=== PATIENT | male | born 1985 | race African-American/Black ===

== ENCOUNTER 2019-01-12 09:03 | Emergency (ER) | payer OTHER ==
[~2019-01-12] VITALS: Ht 182.9 cm; Wt 90.7 kg
[2019-01-12] MEDS ORDERED: METFORMIN HCL500 MG PO (09:12)
[2019-01-12 09:35] LABS: URINE BILIRUBIN NEGATIVE (Negative); URINE BLOOD 2+ (Negative); URINE CLARITY CLEAR; URINE COLOR YELLOW; URINE GLUCOSE-RANDOM 3+ (Negative); URINE KETONES 1+ (Negative); URINE LEUKOCYTES-REFLEX NEGATIVE (Negative); URINE NITRITE-REFLEX NEGATIVE (Negative); URINE PROTEIN 3+ (Negative); URINE UROBILINOGEN 0.2 E.U./dl (0.2-1.0)
[2019-01-12 09:43] LABS: BACTERIA-REFLEX 1-9 Few /HPF (None Seen); HYALINE CASTS 0-3 Few /LPF (None Seen); MUCUS 4-6 Moderate strn/LPF (None Seen); SQUAMOUS 0-3 Few /LPF (0-3); URINE RBC 3-10 Few /HPF (0-2); URINE WBC-REFLEX 0-5 Rare /HPF (0-5)
[2019-01-12 09:44] LABS: AMORPHOUS PHOSPHATES Moderate /LPF (None Seen)
[2019-01-12 09:45] LABS: ABSOLUTE BASOPHILS 0.1 thou/uL (0.0-0.2); ABSOLUTE LYMPHOCYTES 1.4 thou/uL (0.8-5.3); ABSOLUTE MONOCYTES 0.7 thou/uL (0.0-1.2); ABSOLUTE NEUTROPHILS 5.4 thou/uL (1.6-8.1); BASOPHILS 0.9 %; EOSINOPHILS 0.2 %; HEMATOCRIT 43.7 % (42.0-52.0); HEMOGLOBIN 14.9 gm/dL (14.0-18.0); LYMPHOCYTES 18.2 %; MCH 31.4 pg (26.0-34.0); MCV 92.2 fL (80.0-100.0); MONOCYTES 9.1 %; MPV 8.7 fl. (7.2-11.1); NUCLEATED RBCS 0 /100WBC; PLATELET COUNT* 255 thou/uL (150-400); POLYS 71.6 %; RBC 4.74 mil/uL (4.50-6.00); RDW-CV 12.5 % (10.5-14.5); WBC 7.5 thou/uL (4.0-11.0)
[2019-01-12 09:55] LABS: CALCIUM 9.5 mg/dL (8.5-10.1); CREATININE 1.4 mg/dL (0.6-1.3); POTASSIUM 4.2 mmol/L (3.5-5.1)
[2019-01-12 10:00] LABS: ALBUMIN 3.6 g/dL (3.4-5.0); TOTAL BILIRUBIN 0.6 mg/dL (<0.1-1.0); TOTAL PROTEIN 7.6 g/dL (6.4-8.2)
[2019-01-12] MEDS ORDERED: ZOFRAN ODT4 MG SUBLING (10:06)
[2019-01-12 10:21] VITALS: BP 153/96
== END 2019-01-12 10:23 | disposition home or self-care (01) ==
LOC: M.ERS 09:03
PROVIDERS: Family Medicine
DX: R11.2 Nausea with vomiting, unspecified (principal); E11.9 Type 2 diabetes mellitus without complications